=== PATIENT | male | born 1995 | race African-American/Black ===

== ENCOUNTER 2020-02-07 19:27 | Emergency (ER) | payer SELFPAY ==
[~2020-02-07] VITALS: Ht 170.2 cm; Wt 69.0 kg
[2020-02-07 20:13] LABS: CLARITY URINE CLEAR (CLEAR); COLOR URINE DARK YELLOW (YELLOW); KETONES URINE 3+ (NEGATIVE); LEUKOCYTE ESTERASE URINE NEGATIVE (NEGATIVE); NITRITE URINE NEGATIVE (NEGATIVE); OCCULT BLOOD URINE NEGATIVE (NEGATIVE); PROTEIN URINE 1+ (NEGATIVE); SPECIFIC GRAVITY URINE 1.031 (1.005-1.030)
[2020-02-07 20:16] LABS: BASOPHILS % 0.6 % (0.0-2.0); EOSINOPHILS % 0.8 % (0.0-5.0); HEMATOCRIT. 40.6 % (42.0-52.0); HEMOGLOBIN. 14.3 g/dL (14.0-18.0); LYMPHOCYTES % 28.6 % (20.0-50.0); MEAN CORPUSCULAR VOLUME 93.7 fL (80.0-94.0); MEAN PLATELET VOLUME 7.9 fl (7.4-10.4); MONOCYTES % 10.5 % (2.0-8.0); NEUTROPHILS % 59.5 % (40.0-76.0); PLATELET 225 x1000/uL (130-400); RED BLOOD CELL COUNT 4.33 mill/uL (4.7-6.1); RED CELL DISTRIBUTION WIDTH 12.6 % (11.6-14.6)
[2020-02-07 20:19] LABS: CHLORIDE 100 mEq/L (98-107)
[2020-02-07 20:23] LABS: ETHANOL BLOOD < 10 mg/dL
[2020-02-07 21:06] LABS: *AMPHETAMINES SCREEN URINE NEGATIVE (NEGATIVE); *BARBITURATES SCREEN URINE NEGATIVE (NEGATIVE); *BENZODIAZEPINES SCREEN URINE NEGATIVE (NEGATIVE); *COCAINE SCREEN URINE NEGATIVE (NEGATIVE)
[2020-02-07 21:07] LABS: CANNABINOID URINE SCREEN PRESUMTIVE POSITIVE (NEGATIVE); METHADONE URINE SCREEN NEGATIVE (NEGATIVE); OPIATES URINE SCREEN NEGATIVE (NEGATIVE); PHENCYCLIDINE URINE SCREEN NEGATIVE (NEGATIVE)
[2020-02-08] MEDS ORDERED: LORAZEPAM 1MG TABLET PO ONE ×2 (08:15→16:00)
[2020-02-09] MEDS ORDERED: LORAZEPAM 2MG/ML CPJ IM ONE ×3 (07:15→16:30)
[2020-02-09] MEDS ORDERED: LORAZEPAM 1MG TABLET PO ONE (07:15)
[2020-02-09] MEDS ORDERED: OLANZAPINE 10 MG/VIAL IM ONE ×2 (07:45→16:15)
[2020-02-09 16:30] VITALS: BP 120/70
== END 2020-02-09 16:40 | disposition home or self-care (01) ==
LOC: ER 19:27
DX: F32.9 Major depressive disorder, single episode, unspecified (principal); R45.851 Suicidal ideations; Z75.1 Person awaiting admission to adequate facility elsewhere
CPT/HCPCS: 36415; 80053; 80305; 80320; 81003; 85025; 99285; J2060; J3490; G0480

== ENCOUNTER 2020-02-11 02:31 | Emergency (ER) | payer SELFPAY ==
[~2020-02-11] VITALS: Ht 175.3 cm; Wt 70.0 kg
[2020-02-11] MEDS ORDERED: OLANZAPINE 10 MG/VIAL IM STA (02:52)
[2020-02-11 03:27] LABS: CHLORIDE 106 mEq/L (98-107)
[2020-02-11 03:32] LABS: ETHANOL BLOOD < 10 mg/dL
[2020-02-11 03:33] LABS: BASOPHILS % 0.5 % (0.0-2.0); EOSINOPHILS % 1.6 % (0.0-5.0); HEMATOCRIT. 40.5 % (42.0-52.0); HEMOGLOBIN. 14.5 g/dL (14.0-18.0); LYMPHOCYTES % 39.1 % (20.0-50.0); MEAN CORPUSCULAR HEMOGLOBIN 33.4 pg (28.0-32.0); MEAN CORPUSCULAR VOLUME 93.5 fL (80.0-94.0); MONOCYTES % 10.5 % (2.0-8.0); NEUTROPHILS % 48.3 % (40.0-76.0); PLATELET 218 x1000/uL (130-400); RED BLOOD CELL COUNT 4.33 mill/uL (4.7-6.1); RED CELL DISTRIBUTION WIDTH 12.2 % (11.6-14.6)
[2020-02-11 03:53] LABS: *AMPHETAMINES SCREEN URINE NEGATIVE (NEGATIVE); *BARBITURATES SCREEN URINE NEGATIVE (NEGATIVE); *BENZODIAZEPINES SCREEN URINE NEGATIVE (NEGATIVE)
[2020-02-11 03:54] LABS: *COCAINE SCREEN URINE NEGATIVE (NEGATIVE); CANNABINOID URINE SCREEN PRESUMTIVE POSITIVE (NEGATIVE); METHADONE URINE SCREEN NEGATIVE (NEGATIVE); OPIATES URINE SCREEN NEGATIVE (NEGATIVE); PHENCYCLIDINE URINE SCREEN NEGATIVE (NEGATIVE)
[2020-02-11 04:02] LABS: CLARITY URINE CLEAR (CLEAR); COLOR URINE YELLOW (YELLOW); KETONES URINE NEGATIVE (NEGATIVE); LEUKOCYTE ESTERASE URINE NEGATIVE (NEGATIVE); NITRITE URINE NEGATIVE (NEGATIVE); OCCULT BLOOD URINE NEGATIVE (NEGATIVE); PROTEIN URINE NEGATIVE (NEGATIVE); SPECIFIC GRAVITY URINE 1.017 (1.005-1.030)
[2020-02-11 07:31] VITALS: BP 121/82
== END 2020-02-11 08:29 | disposition home or self-care (01) ==
LOC: ER 02:31
DX: F12.188 Cannabis abuse with other cannabis-induced disorder (principal)
CPT/HCPCS: 36415; 80053; 80305; 80307; 80320; 80329; 81003; 85025; 96372; 99283; J3490; G0480

== ENCOUNTER 2020-02-11 09:46 | Emergency (ER) | payer MEDICAID ==
[~2020-02-11] VITALS: Ht 175.3 cm; Wt 73.0 kg
[2020-02-11] MEDS ORDERED: ZIPRASIDONE MESYLATE 20MG/VIAL IM ONE ×2 (10:30→15:30)
[2020-02-11 11:53] LABS: *BARBITURATES SCREEN URINE NEGATIVE (NEGATIVE)
[2020-02-11 11:54] LABS: *AMPHETAMINES SCREEN URINE NEGATIVE (NEGATIVE); *BENZODIAZEPINES SCREEN URINE NEGATIVE (NEGATIVE); *COCAINE SCREEN URINE NEGATIVE (NEGATIVE); METHADONE URINE SCREEN NEGATIVE (NEGATIVE); OPIATES URINE SCREEN NEGATIVE (NEGATIVE); PHENCYCLIDINE URINE SCREEN NEGATIVE (NEGATIVE)
[2020-02-11 11:55] LABS: CANNABINOID URINE SCREEN PRESUMTIVE POSITIVE (NEGATIVE)
[2020-02-11 12:26] LABS: BASOPHILS % 0.7 % (0.0-2.0); EOSINOPHILS % 1.3 % (0.0-5.0); HEMATOCRIT. 40.7 % (42.0-52.0); HEMOGLOBIN. 14.6 g/dL (14.0-18.0); LYMPHOCYTES % 45.6 % (20.0-50.0); MEAN CORPUSCULAR HEMOGLOBIN 33.5 pg (28.0-32.0); MEAN CORPUSCULAR VOLUME 93.3 fL (80.0-94.0); MONOCYTES % 9.9 % (2.0-8.0); NEUTROPHILS % 42.5 % (40.0-76.0); PLATELET 203 x1000/uL (130-400); RED BLOOD CELL COUNT 4.36 mill/uL (4.7-6.1); RED CELL DISTRIBUTION WIDTH 12.4 % (11.6-14.6)
[2020-02-11 12:30] LABS: CHLORIDE 109 mEq/L (98-107)
[2020-02-11 12:34] LABS: ETHANOL BLOOD < 10 mg/dL
[2020-02-11] MEDS ORDERED: HALOPERIDOL LACTATE 5MG/ML VIAL IM ONE (18:45)
[2020-02-11] MEDS ORDERED: LORAZEPAM 2MG/ML CPJ IM ONE (18:45)
[2020-02-11] MEDS ORDERED: DIPHENHYDRAMINE 50MG/ML VIAL IM ONE (18:45)
[2020-02-12] MEDS ORDERED: LORAZEPAM 2MG/ML CPJ IM ONE ×2 (08:15→17:00)
[2020-02-12] MEDS ORDERED: OLANZAPINE 10 MG/VIAL IM ONE (08:15)
[2020-02-12] MEDS ORDERED: DIPHENHYDRAMINE 50MG/ML VIAL IM ONE (17:00)
[2020-02-12] MEDS ORDERED: HALOPERIDOL LACTATE 5MG/ML VIAL IM ONE (17:00)
[2020-02-13] MEDS ORDERED: OLANZAPINE 10MG TABLET PO NR (10:15)
[2020-02-13] MEDS ORDERED: LORAZEPAM 1MG TABLET PO NR (10:24)
[2020-02-13] MEDS ORDERED: HALOPERIDOL LACTATE 5MG/ML VIAL IM ONE (22:15)
[2020-02-13] MEDS: OLANZAPINE 10MG TABLET PO SCH (22:42)
[2020-02-14] MEDS ORDERED: OLANZAPINE 10 MG/VIAL IM ONE (06:15)
[2020-02-14] MEDS: OLANZAPINE 10MG TABLET PO SCH (09:29)
[2020-02-14] MEDS ORDERED: LORAZEPAM 2MG/ML CPJ ONE (11:29)
[2020-02-14] MEDS ORDERED: LORAZEPAM 2MG/ML CPJ IM ONE (11:30)
[2020-02-14 15:02] VITALS: BP 111/60
== END 2020-02-14 15:15 | disposition short-term general hospital (02) ==
LOC: ER 09:46
DX: F23 Brief psychotic disorder (principal); R45.1 Restlessness and agitation; F32.9 Major depressive disorder, single episode, unspecified; F15.10 Other stimulant abuse, uncomplicated
CPT/HCPCS: 36415; 80053; 80305; 80320; 85025; 96372; 99285; J1200; J1630; J2060; J3486; J3490; G0480